=== PATIENT | female | born 1985 ===

== ENCOUNTER 2020-07-09 14:29 | Observation (INO) ==
[2020-07-09] MEDS ORDERED: cefOXitin 2,000 MG in SYRINGE 1 EACH IV ONE (15:06)
[2020-07-09] MEDS ORDERED: HYDROmorphone 2 MG/1 ML VIAL IV PRN (15:25)
[2020-07-09] MEDS ORDERED: KETOROLAC 15 MG/1 ML VIAL IV PRN (15:25)
[2020-07-09] MEDS ORDERED: ALBUTEROL/IPRATROPIUM 3 ML NEB RESP TX PRN (15:25)
[2020-07-09] MEDS ORDERED: BISACODYL 5 MG TABLET PO PRN (15:25)
[2020-07-09] MEDS ORDERED: ACETAMINOPHEN 325 MG TABLET PO PRN (15:25)
[2020-07-09] MEDS ORDERED: ONDANSETRON 4 MG/2 ML VIAL IV PRN ×2 (15:25→16:53)
[2020-07-09] MEDS ORDERED: TISSUE ADHESIVE 1 EACH APPLICATOR TOP ONE (15:30)
[2020-07-09] MEDS ORDERED: BUPIVACAINE MPF 0.25% 30 ML VIAL ONE (15:30)
[2020-07-09] MEDS ORDERED: LIDOCAINE 1%/EPI INJ 20 ML VIAL ONE (15:30)
[2020-07-09] MEDS ORDERED: HYDROmorphone 2 MG/1 ML VIAL ONE (16:52)
[2020-07-09] MEDS ORDERED: ONDANSETRON 4 MG/2 ML VIAL ONE ×2 (16:52→16:56)
[2020-07-09] MEDS ORDERED: propofoL 200 MG/20 ML VIAL IV ONE (16:54)
[2020-07-09] MEDS ORDERED: LIDOCAINE 2% 5 ML VIAL ONE (16:55)
[2020-07-09] MEDS ORDERED: MIDAZOLAM 2 MG/2 ML VIAL ONE (16:55)
[2020-07-09] MEDS: HYDROmorphone 2 MG/1 ML VIAL IV PRN ×4 (16:55→17:10)
[2020-07-09] MEDS ORDERED: fentaNYL 100 MCG/2 ML VIAL ONE (16:55)
[2020-07-09] MEDS ORDERED: SEVOFLURANE 1 UNIT/15 MINUTE INH ONE (16:55)
[2020-07-09] MEDS ORDERED: KETOROLAC 30 MG/1 ML VIAL ONE (16:56)
[2020-07-09] MEDS ORDERED: DEXAMETHASONE 4 MG/1 ML VIAL ONE (16:56)
[2020-07-09] MEDS ORDERED: ROCURONIUM 100 MG/10 ML VIAL IV ONE (16:56)
[2020-07-09] MEDS ORDERED: LACTATED RINGERS 1,000 ML IV ONE (16:56)
[2020-07-09] MEDS ORDERED: SUCCINYLCHOLINE 200 MG/10 ML VIAL ONE (16:56)
[2020-07-09] MEDS ORDERED: GLYCOPYRROLATE 0.4 MG/2 ML VIAL ONE (16:56)
[2020-07-09] MEDS ORDERED: NEOSTIGMINE 10 MG/10 ML VIAL ONE (16:56)
[2020-07-10 05:55] LABS: Basophils % 0.1 % (0.0-0.8); Hematocrit 35.7 VOL% (35.7-47.0); Hemoglobin 11.6 GM/DL (12.0-16.0); Immature Granulocytes % 0.5 %; Immature Granulocytes Absolute 0.05 #; Lymphocytes # 1.1 10*3/uL (1.4-4.0); Lymphocytes % 12.5 % (21.3-54.2); Mean Corpuscular HGB Conc 32.5 GM/DL (32-36); Mean Corpuscular Volume 83.2 FL (87-102); Mean Platelet Volume 10.4 FL (9.6-12.0); Monocytes % 4.9 % (1.7-12.7); Platelet Count 238 T/CUMM (130-400); Red Blood Count 4.29 MC/CUMM (3.8-5.5); Red Cell Distribution Width 14.3 % (9.3-17.3); White Blood Count 9.1 T/CUMM (4-12)
[2020-07-10 06:41] LABS: Calcium 8.6 MG/DL (8.5-10.1)
[2020-07-10] MEDS: LACTATED RINGERS 1,000 ML IV SCH (07:10)
[2020-07-10 07:41] VITALS: BP 116/64
[2020-07-10] MEDS ORDERED: PANTOPRAZOLE 40 MG TABLET PO SCH (09:00)
== END 2020-07-10 10:33 | disposition home or self-care (01) ==
LOC: EDUNIT# → EDBD → N.EDINP 14:29 → N.ED 14:29 → N.EDINP 15:50 → N.3E 17:41
PROVIDERS: ADMIT Surgery; ATTEND Surgery